=== PATIENT | male | born 1980 | race Caucasian/White ===

== ENCOUNTER → 2019-11-08 14:06 | Outpatient (BNVA) | payer BC, SELFPAY | PROVIDERS: Family Provider Nurse Practitioner Family; PCP Nurse Practitioner Family; Visit Provider Nurse Practitioner Family | DX: Z11.59 Encounter for screening for other viral diseases (principal) | CPT/HCPCS: 87635 ==

== ENCOUNTER 2020-03-01 07:40 | Outpatient (CLI) | payer BC, SELFPAY ==
--- NOTE | 2020-03-01 08:00 | US_ITS ---
WS: [id number] THYROID ULTRASOUND (TI-RADS CRITERIA) History: Thyroid nodules. Technique: Ultrasound examination of the thyroid and adjacent soft tissues is performed. Comparison: 03/30/2019. FINDINGS: Right lobe: 4.4 cm x 2.1 cm x 1.9 cm. Volume: 8.9 cm3. Normal size and echotexture. No significant are dominant nodules are present. Left lobe: 3.7 cm x 1.5 cm x 1.8 cm. Volume: 5.1 cm3. Normal size and echotexture. No significant or dominant nodules are present. Isthmus: 0.4 cm. Estimated total number of nodules greater than or equal to 1 cm: 0. Number of spongiform nodules greater than or equal to 2 cm not described below (TR1): 0. Number of mixed cystic and solid nodules greater than or equal to 1.5 cm not described below (TR2): 0 . NODULE: 1 Size: 0.7 x 0.7 x 0.6 cm. Location: Superior RIGHT thyroid. Composition: Cystic/almost completely cystic (0) Echogenicity: Hypoechoic (2) Shape: Not taller than wide (0) Margins: Smooth (0) Echogenic foci: Large comet-tail artifacts (0) ACR TI-RADS total points: 2 ACR TI-RADS risk category: TR2 There are additional smaller scattered benign appearing thyroid which are also probably colloid cyst. US/US thyroid [id number] Impression: TR2 Recommendation: No FNA recommended. Colloid cysts.
== END 2020-03-01 07:41 | disposition home or self-care (01) ==
LOC: US 07:41
PROVIDERS: PCP Nurse Practitioner Family; Visit Provider Nurse Practitioner Family
DX: E04.2 Nontoxic multinodular goiter (principal)
CPT/HCPCS: 76536

== ENCOUNTER → 2020-10-11 09:29 | Outpatient (BNVA) | payer OTHER, SELFPAY | PROVIDERS: PCP Nurse Practitioner Family; Visit Provider Nurse Practitioner Family | DX: Z00.00 Encounter for general adult medical examination without abnormal findings (principal); E04.2 Nontoxic multinodular goiter; Z91.038 Other insect allergy status; Z13.6 Encounter for screening for cardiovascular disorders; E55.9 Vitamin D deficiency, unspecified; Z79.899 Other long term (current) drug therapy; F41.9 Anxiety disorder, unspecified; R51.9 Headache, unspecified | CPT/HCPCS: 80053; 80061; 81003; 82306; 83036; 84439; 84443; 85025 ==

== ENCOUNTER → 2021-02-22 00:01 | Outpatient (BNVA) | payer OTHER, SELFPAY | PROVIDERS: PCP Nurse Practitioner Family; Visit Provider Nurse Practitioner Family | DX: E04.2 Nontoxic multinodular goiter (principal); Z79.899 Other long term (current) drug therapy | CPT/HCPCS: 80053; 83036; 84439; 84443 ==

== ENCOUNTER 2021-06-19 10:52 | Outpatient (CLI) | payer OTHER, SELFPAY ==
--- NOTE | 2021-06-19 11:02 | FL_ITS ---
WS: [id number] Barium swallow and esophagram, 06/19/2021 Clinical Data: DYSPHAGIA Comparison: None. Fluoroscopy time: .7 minutes. Findings: The patient swallowed the thick and thin barium, and it flowed through the hypopharynx without hesita tion. No stricture, mass, polyp or erosion was seen. The barium entered the esophagus and there was normal motility throughout. No hiatal hernia, reflux, stricture, polyp, mass, erosion or ulcer was noted. No reflux was present. FL/FL barium swallow [id number] Impression: Normal esophagram.
== END 2021-06-19 10:53 | disposition home or self-care (01) ==
LOC: RAD 10:55
PROVIDERS: PCP Nurse Practitioner Family; Visit Provider Specialist
DX: R13.10 Dysphagia, unspecified (principal)
CPT/HCPCS: 74220

== ENCOUNTER 2021-06-21 10:21 | Outpatient (CLI) | payer OTHER, SELFPAY ==
--- NOTE | 2021-06-21 10:27 | FL_ITS ---
WS: [id number] Modified barium swallow, 06/21/2021 Clinical Data: Other dysphagia Comparison: None. Fluoroscopy time: 2.3 minutes. Findings: The patient had normal oral function. Occasionally there were double swallows to complete passage of the material. There is no premature spillage. There is no aspiration or penetration. The barium table t passed normally from the oral pharynx through the hypopharynx into the stomach. FL/FL barium swallow modifd [id number] Impression: Negative modified barium swallow.
== END 2021-06-21 10:22 | disposition home or self-care (01) ==
LOC: RAD 10:22
PROVIDERS: PCP Nurse Practitioner Family; Visit Provider Specialist
DX: R13.10 Dysphagia, unspecified (principal)
CPT/HCPCS: 74230; 92611

== ENCOUNTER → 2021-12-17 09:04 | Outpatient (BNVA) | payer OTHER, SELFPAY | PROVIDERS: PCP Nurse Practitioner Family; Visit Provider Nurse Practitioner Family | DX: E16.2 Hypoglycemia, unspecified (principal) | CPT/HCPCS: 80053; 83036; 85025 ==

== ENCOUNTER 2022-04-02 07:04 | Outpatient (CLI) | payer OTHER, SELFPAY ==
--- NOTE | 2022-04-02 07:15 | MR_ITS ---
WS: [id number] MRI BRAIN WITHOUT CONTRAST HISTORY: Constant dizziness and feeling faint. Increasing for 3 years. COMPARISON: CT head 03/30/2019 TECHNIQUE: Diffusion imaging, multiplanar T1, T2 and FLAIR imaging obtained. No evidence for acute infarct or hemorrhage. Ren-white matter differentiation is normal. No remote or acute infarcts are volume loss. Ventricles and extra-axial spaces are normal. No inferior displacement of cerebellar tonsils. The sella turcica and pituitary gland are unremarkabl e. Dural venous sinuses and mo[place] of [place] demonstrate no abnormality on this unenhanced studies. Paranasal sinuses: Clear. Mastoid air cells: Normal. Calvarium and scalp: Intact. MR/MR head wo con* [id number] IMPRESSION: 1. Unremarkable noncontrast MRI brain. 2. No infarct or significant small vessel ischemic disease.
--- NOTE | 2022-04-02 07:29 | MR_ITS ---
WS: [id number] MRA ANGIOGRAPHY TA[place]NA OF PL[place] HISTORY: R42 - Dizziness and giddiness COMPARISON: None available. TECHNIQUE: 3-D MR angiography is performed of the kaibab of [place]. All images are reviewed including source images. Small caliber distal vertebral arteries. RIGHT vertebral artery is very slightly dominant. The distal LEFT vertebral arteries is hypoplastic or absent. Basilar artery is intact. Posterior communicating arteries are robust. Absent RIGHT P1 segment. Intracranial portion of the internal carotid arteries are normal course and caliber. No significant a therosclerosis, stenosis or aneurysm identified. Middle and anterior cerebral arteries are both paten t with no significant disease. Anterior communicating artery is also normal. MR/MR angio head wo con [id number] IMPRESSION: 1. No cerebral artery aneurysms or atherosclerotic occlusions. 2. 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 3. Dominant RIGHT vertebral artery. Hypoplastic or absent distal LEFT vertebra l artery.
== END 2022-04-02 07:05 | disposition home or self-care (01) ==
LOC: RAD 07:04
PROVIDERS: Visit Provider Nurse Practitioner
DX: R42 Dizziness and giddiness (principal); R26.89 Other abnormalities of gait and mobility
CPT/HCPCS: 70544; 70551

== ENCOUNTER 2022-07-08 10:57 | Outpatient (CLI) | payer OTHER, BC, SELFPAY ==
[2022-07-08 11:19] VITALS: BMI 31.0
--- NOTE | 2022-07-08 11:23 | ECG_ITS ---
[facility] Test Date: 2022-07-08 Pat Name: Mayco Duff Department: Room: Gender: Male Media Reporter: : 1980 Requested By: Frank Contreras Order Number: [id number] Chrystal MD: Doni Mccoy M.D. Interpretive Statements NAME OF STUDY: TREADMILL STRESS TEST INDICATION: Chronic tachycardia, PROCEDURE: At the baseline, the patient's blood pressure was 135/89 with a heart rate of 82. The baseline electrocardiogram showed normal sinus rhythm with normal ST-Ts. . The patient exercised for 8 minutes and 15 seconds on a standard Jace protocol. Patient attained a maximum heart rate of 168 beats per minute(94% of the maximum predicted heart rate) with a blood pressure at the peak exercise of 222/58 mm Hg. The EKG at the peak exercise revealed no significant changes. Patient did not have any chest pain or any significant cardiac arrhythmias with the exercise During the recovery phase, there were no new changes. Blood pressure at the end of the recovery phase was 148/85 mm Hg with a heart rate of 104 per minute. CONCLUSION: 1. Normal EKG response to treadmill exercise 2. No exercise-induced chest pain or cardiac arrhythmia 3. Hypertensive response to exercise 4. Fair exercise tolerance, attained a maximum of 10.2 METs Electronically Signed On 07-09-2022 0:31:27 [employer]WING MACHINE OPERATOR [employer] by Doni Mccoy M.[id number]
[2022-07-08 11:49] VITALS: BP 149/85; PULSE 104
== END 2022-07-08 10:58 | disposition home or self-care (01) ==
PROVIDERS: PCP Nurse Practitioner Family; Visit Provider Nurse Practitioner Family
DX: R00.0 Tachycardia, unspecified (principal)
CPT/HCPCS: 93017